=== PATIENT | male | born 1995 | race African-American/Black ===

== ENCOUNTER 2019-10-10 12:59 | Emergency (ER) | payer OTHER ==
[~2019-10-10] VITALS: Ht 180.3 cm; Wt 61.0 kg
[2019-10-10 14:03] VITALS: BP 126/77
== END 2019-10-11 00:52 | disposition left against medical advice (07) ==
LOC: ER 12:59
DX: R00.0 Tachycardia, unspecified (principal); Z53.21 Procedure and treatment not carried out due to patient leaving prior to being seen by health care provider
CPT/HCPCS: 93005